=== PATIENT | male | born 1950 | race Hispanic/Latino ===

== ENCOUNTER 2016-08-28 16:09 | Outpatient (CLI) | payer MEDICARE | END 2016-08-28 16:10 | disposition home or self-care (01) | LOC: LABHHL 16:09 | PROVIDERS: ATTEND Internal Medicine Gastroenterology | DX: Z12.11 Encounter for screening for malignant neoplasm of colon (principal) | CPT/HCPCS: 88305 ==

== ENCOUNTER 2018-11-19 10:37 | Outpatient (CLI) | payer MEDICARE ==
--- NOTE | 2018-11-19 11:29 | XRay Report ---
RIGHT ELBOW THREE VIEWS: 11/19/18 10:37:00 CLINICAL: Right elbow swelling and erythema. FINDINGS: No fracture or dislocation. A small osteophyte of the coronoid process. The ulnohumeral joint is otherwise normal. The radiohumeral joint is normal. No erosive changes in the bones. No suspicious bone lesion. A prominent triceps insertion enthesophyte. Soft tissue swelling on the dorsal aspect of the elbow at the olecranon. No soft tissue air or foreign body. IMPRESSION: The pattern of soft tissue swelling suggests olecranon bursitis. Moderate ulnohumeral joint osteoarthritis.
== END 2018-11-19 10:38 | disposition home or self-care (01) ==
LOC: SPVIMAG 10:37
PROVIDERS: ATTEND Internal Medicine Hematology
DX: M19.021 Primary osteoarthritis, right elbow (principal); C18.9 Malignant neoplasm of colon, unspecified